=== PATIENT | male | born 1950 | race Caucasian/White ===

== ENCOUNTER → 2016-11-03 | Outpatient (CLI) | payer OTHER ==
--- NOTE | 2016-11-03 22:53 | CONS ---
DATE OF CONSULTATION: 11/03/2016 This patient is a 65-year-old gentleman who has been evaluated in the sleep center for obstructive sleep apnea/hypopnea syndrome. HISTORY OF PRESENT ILLNESS/SLEEP-WAKE EVALUATION: Patient's usual sleep schedule on working days is from 8:30 p.m. until 5:20 a.m., on weekends from around 9:30 p.m. until 5 a.m. No problem falling asleep. No TV in bedroom. According to his , he snores, has episodes of stopped breathing during sleep. He wakes up from sleep with choking, heartburn, gasping for air, restless legs once and nocturia. He has episodes of muscle spasms during the night in the legs. No history of hypnagogic hallucinations, sleep paralysis or cataplexy. Past medical history is positive for: 1. Hyperlipidemia. 2. Bronchitis. 3. Emphysema. MEDICATIONS: Lipitor. SOCIAL HISTORY: Positive for smoking for about 40 years; at the beginning 2 packs a day; presently 1-1/2 packs a day. Alcohol consumption very rarely. REVIEW OF SYSTEMS: No fevers. No double vision. No recent chest pain. No shortness of breath. No abdominal pain. No bleeding episodes. No blood in urine. No seizure episodes. Awakenings from sleep. Sometimes tiredness during the day. PHYSICAL EXAMINATION: GENERAL: A pleasant 65-year-old gentleman without distress. VITAL SIGNS: BP 113/71, HR 84, RR 16. Height 5 feet 7-1/2 inches. Weight 186. BMI 28.7. Neck 16 inches in circumference. Temperature 97.7. Oxygen saturation at room air 95%. HEENT: PERRLA, EOMI. Evaluation of oropharynx showed tongue protrudes midline; extremely low position of soft palate; restriction of nasal breathing. NECK: Supple. No JVD. Thyroid is not palpable. LUNGS: Clear to percussion and to auscultation. Good air exchange. No wheezing or rhonchi. HEART: S1, S2 regular. No murmurs, gallops or rubs. ABDOMEN: Soft and nontender. Bowel sounds are present. No organomegaly appreciated. EXTREMITIES: No clubbing or cyanosis. WINDERMAN: Awake, alert, and oriented x3. Cranial nerves 2 to 7 intact. There is no fasciculation or atrophy noted. No focal deficits observed. IMPRESSION: 1. Snoring, witnessed episodes of stopped breathing during sleep, extremely low position of soft palate, awakenings from sleep, tiredness during the day; obstructive sleep apnea/hypopnea syndrome. 2. Smoker for about 60 pack-years. 3. History of bronchitis. 4. Hyperlipidemia. 5. Overweight. 6. Status post appendectomy. PLAN: 1. Polysomnography for evaluation of patient's breathing during sleep. 2. CPAP/BiPAP titration if sleep study confirms obstructive sleep apnea-hypopnea syndrome. 3. Preferable position during sleep on the side. 4. No driving if patient feels any sleepiness. Patient is aware of civil and criminal liability for unsafe driving. 5. I will see patient for follow-up visit to explain results of the testing and following plan. Thank you very much for referring this patient for consultation. Sincerely, Apollo Arredondo MD, PhD, FAASM. Diplomat of [employer], Sleep Medicine Board by [employer] [facility] [place]
== END | disposition home or self-care (01) ==
LOC: SLEEP 17:02
PROVIDERS: ATTEND Internal Medicine
DX: G47.33 Obstructive sleep apnea (adult) (pediatric) (principal); E78.5 Hyperlipidemia, unspecified; E66.3 Overweight; Z68.29 Body mass index [BMI] 29.0-29.9, adult; Z98.890 Other specified postprocedural states; F17.200 Nicotine dependence, unspecified, uncomplicated; Z79.899 Other long term (current) drug therapy
CPT/HCPCS: 99211

== ENCOUNTER → 2019-05-10 | Day surgery (SDC) | payer OTHER ==
[2019-05-09 09:37] VITALS: BMI 27.6
[~2019-05-10] MED LIST: GLUCAGON 1 MG/ML VIAL ONE; LACTATED RINGERS 1,000 ML IV SCH; LIDOCAINE 1% 20 ML VIAL (10MG/ML) FOR IV START INTRADERMA ONE; PROPOFOL 10 MG/ML 20 ML VIAL IV ONE
[2019-05-10 10:11] VITALS: TEMP 97.3
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
--- NOTE | 2019-05-10 10:35 | P.OP ---
Date of Procedure: 05/10/19 Preoperative Diagnosis: Screening colonoscopy Postoperative Diagnosis: Tortuous sigmoid colon Incomplete colonoscopy Procedure(s) Performed: Colonoscopy Anesthesia: MAC Surgeon: Serjio Gutierrez Pathology: none sent Condition: stable Disposition: PACU Description of Procedure: The patient's placed on the endoscopy table in the lateral position. He received IV sedation. Digital rectal exam was performed which revealed no abnormalities. The colonoscope was then placed patient anus passed throughout t he colon. Scope could not be passed beyond the sigmoid colon secondary to a very tortuous sigmoid colon. This point the scope was withdrawn. The patient was given glucagon. The pediatric scope was advanced into the rectum. The pediatric scope could not be passed beyond the sigmoid colon secondary to tortuosity of the sigmoid colon this point the scope was withdrawn. The visualized; rectum appeared normal. The scope was withdrawn for patient. Patient was scheduled for a barium enema.
[2019-05-10 10:36] VITALS: PULSE 72; RESP 17
[2019-05-10 10:50] VITALS: BP 116/78
--- NOTE | 2019-05-10 15:08 | FL ---
EXAMINATION TYPE: FL barium enema w air contrast DATE OF EXAM: 05/10/2019 COMPARISON: NONE HISTORY: Incomplete colonoscopy TECHNIQUE: A air contrast barium enema study is performed. FINDINGS: Body Shop Manager view of the abdomen shows overall non-obstructive bowel gas pattern. No evidence of any mass or polyp, obstructing or constricting lesion throughout the colon. Mild sigmo id diverticulosis without diverticulitis. Limited coating of the right hemicolon given air block. Appendix was filled and appeared normal. The terminal ileum was refluxed and appears within normal l imits. IMPRESSION: 1. Diverticular disease involving the sigmoid colon without evidence for diverticulitis. 2. Limited coating of the right hemicolon.
== END ==
LOC: ORWHC2ENDO 09:28
PROVIDERS: ATTEND Surgery
DX: Z12.11 Encounter for screening for malignant neoplasm of colon (principal); Q43.8 Other specified congenital malformations of intestine; E78.5 Hyperlipidemia, unspecified; F17.210 Nicotine dependence, cigarettes, uncomplicated; Z79.899 Other long term (current) drug therapy; Z88.6 Allergy status to analgesic agent; Z90.81 Acquired absence of spleen; Z97.2 Presence of dental prosthetic device (complete) (partial)
CPT/HCPCS: 74280; 45330; J1610; J2704

== ENCOUNTER → 2021-09-17 | Outpatient (CLI) | payer BC ==
--- NOTE | 2021-09-18 17:55 | CT ---
EXAMINATION TYPE: CT angio abdomen DATE OF EXAM: 09/17/2021 COMPARISON: None. HISTORY: Aortic abd aneurysm w/o rupture CT DLP: 659.30 mGycm, Automated Exposure Control for Dose Reduction was Utilized. CONTRAST: CTA scan of the abdomen is performed without oral and without and with IV Contrast, patient injected with 100 mL of Isovue 370. Aneurysm protocol with 3-D reconstructed images created on an independent workstation and reviewed FINDINGS: VASCULAR: Moderate mixed peripheral plaque in the abdominal aorta extends into iliac branch vessels. There is significant narrowing of the celiac artery at its origin sagittal image 59 series 17 for ref erence. There is direct origin of the left pancreaticoduodenal artery from the abdominal aorta which is normal variant. Patent celiac artery without significant stenosis. There are 2 right renal arterie s of similar caliber originating immediately adjacent to each other from the aorta, cannot exclude si gnificant stenosis near the origin, similar prominent mixed plaque at origin of left renal artery cau sing stenosis approaching but under 50%. Distal to this there is patent SAGE with focal aneurysm up to 3.8 cm image 39 series 7. No iliac artery extension identified. Length of the aneurysm roughly 6 cm sagittal image 57 series 17. LUNG BASES: No significant abnormality is appreciated. LIVER/GB: No significant abnormality is appreciated. PANCREAS: No significant abnormality is seen. SPLEEN: Small spleen and/or splenosis in the left upper quadrant. ADRENALS: No significant abnormality is seen. KIDNEYS: There are 2 adjacent calculi at the level left kidney with larger calculus measuring 1.2 cm coronal image 60. There are few tiny hypodense lesions felt to reflect simple thin-walled cysts with largest lesion partially exophytic measuring 3.5 cm lower pole left kidney. BOWEL: Mild to moderate diffuse colonic fecal prominence. No suspicious small or large bowel dilatati on. LYMPH NODES: No greater than 1cm abdominal lymph nodes are appreciated. OSSEOUS STRUCTURES: Moderate disc space narrowing right L4-L5 level with vacuum disc phenomenon and s clerosis along with spurring. Mild to moderate disc space narrowing and spurring left L2-L3 level. OTHER: Tiny fat-containing umbilical hernia. IMPRESSION: Infrarenal AAA up to 3.8 cm. No common iliac artery extension. 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 Cannot exclude significant stenosis at origin of the to adjacent simila r caliber right renal arteries, correlate clinically for history of uncontrolled hypertension.
== END | disposition home or self-care (01) ==
LOC: RADCTMAIN 15:48
PROVIDERS: ATTEND Family Medicine
DX: I71.4 Abdominal aortic aneurysm, without rupture (principal)
CPT/HCPCS: 82565; 84520; 74175; 36415; Q9967

== ENCOUNTER → 2022-11-04 | Outpatient (CLI) | payer BC ==
[2022-11-04 23:15] LABS: HCT 43.6 % (39.6-50.0); HGB 13.6 g/dL (13.0-17.0); MCH 29.6 pg (27.0-32.0); MCHC 31.2 g/dL (32.0-37.0); Mean Platelet Volume 10.8 fL (9.5-12.2); NRBC Per 100 WBC 0 /100 WBCS (0.0-0.0); Platelet Count 286 X 10*3/uL (140-440); RBC 4.59 X 10*6/uL (4.40-5.60); RDW 15.7 % (11.5-14.5); WBC 9.45 X 10*3/uL (4.50-10.00)
[2022-11-04 23:32] LABS: ALT 21 U/L (10-49); AST 24 U/L (14-35); African American GFR (CKD) 71.1 (60.0-200.0); Albumin 4.9 g/dL (3.8-4.9); Albumin/Globulin Ratio 1.87 (1.60-3.17); Alkaline Phosphatase 110 U/L (41-126); BUN/Creat Ratio 12.08 Ratio (12.00-20.00); Blood Urea Nitrogen 14.5 mg/dL (9.0-27.0); Calcium 9.8 mg/dL (8.7-10.3); Carbon Dioxide 21.8 mmol/L (20.0-27.5); Chloride 102 mmol/L (96-109); Chol/HDL Ratio 4.47 Ratio; Globulin 2.6 g/dL (1.6-3.3); Glucose 115 mg/dL (70-110); LDL Cholesterol,Calculated 98.1 mg/dL (0.0-131.0); Non-African American GFR(CKD) 61.3 (60.0-200.0); Potassium 4.5 mmol/L (3.5-5.5); Sodium 139 mmol/L (135-145); Total Protein 7.5 g/dL (6.2-8.2)
== END | disposition home or self-care (01) ==
LOC: LABWHC1 12:52
PROVIDERS: ATTEND Physician Assistant
DX: Z00.00 Encounter for general adult medical examination without abnormal findings (principal); J44.9 Chronic obstructive pulmonary disease, unspecified
CPT/HCPCS: 36415; 80053; 80061; 83036; 84439; 84443; 85027

== ENCOUNTER → 2022-11-09 | Outpatient (CLI) | payer BC ==
--- NOTE | 2022-11-10 14:00 | MR ---
EXAMINATION TYPE: MR brain wo/w con DATE OF EXAM: 11/09/2022 7:43 PM CLINICAL INDICATION:Male, 71 years old with history of R44.2 HALLUCINATIONS R41.3 AMNESIA; COMPARISON: None TECHNIQUE: Multi planar, multi sequence imaging was performed through the brain including: T1, T2, In version recovery, susceptibility weighted imaging and gradient echo imaging and Diffusion weighted im aging. The patient was then given intravenous contrast and multi planar, T1 fat-saturation images wer e obtained. IV Contrast: 8.5 cc Gadavist FINDINGS: Bilateral choroid plexus xanthogranulomas. The wheeler-white junctions, ventricular system, basal cisterns appear unremarkable. Diffusion-weighted imaging shows no evidence of restricted diffusion to suggest acute/subacute infarct. Intracranial art erial flow voids are maintained. Midline structures show no abnormality. Scattered foci of high T2 si gnal intensity are seen within the periventricular white matter. The susceptibility weighted images d o not reveal any evidence for micro-hemorrhage. After administration of gadolinium, no abnormal enhan cement is seen. The bone marrow signal is within normal limits. Paranasal sinuses and mastoid air cells: No significant paranasal sinus disease. Visualized orbits: Orbital contents are intact. IMPRESSION: 1. No evidence of intracranial mass, acute/subacute infarct, or abnormal enhancement 2. Nonspecific white matter changes, likely related to small vessel ischemic disease
== END | disposition home or self-care (01) ==
LOC: RADMRIMAIN 17:25
PROVIDERS: ATTEND Family Medicine
DX: G93.89 Other specified disorders of brain (principal); R44.2 Other hallucinations; R41.3 Other amnesia
CPT/HCPCS: 70553; A9585